=== PATIENT | female | born 1980 | race Caucasian/White ===

== ENCOUNTER 2019-07-09 11:22 | Observation (INO) | payer OTHER ==
--- NOTE | 2019-07-09 11:32 | ER Document Report ---
ED Medical Screen (RME) - General Chief Complaint: S/S of Possible Stroke Stated Complaint: POSSIBLE STROKE Time Seen by Provider: 07/09/19 11:25 Mode of Arrival: Ambulatory Information source: Patient Notes: 39-year-old female patient presented emergency department with chief complaint of confusion, tremor and difficulty putting thoughts together. Patient reports she noticed the symptoms upon waking this morning between 530 and 6 AM. She states she was fine when she went to bed last night. Denies any medical history. Denies any facial droop or unilateral weakness. Patient does have a tremor in her left upper extremity, she is having difficulty putting her thoughts together while answering questions in triage. She will be sent straight to obtain a head CT. I have greeted and performed a rapid initial assessment of this patient. A comprehensive ED assessment and evaluation of the patient, analysis of test results and completion of the medical decision making process will be conducted by additional ED providers. I have specifically instructed the patient or family members with the patient to immediately return to any nursing staff should anything change in the patient's condition or with their chief complaint. Physical Exam - Vital signs Vitals: Temp Pulse Resp BP Pulse Ox 98.2 F 92 16 117/70 98 07/09/19 11:27 07/09/19 11:27 07/09/19 11:27 07/09/19 11:27 07/09/19 11:27 Course - Vital Signs Vital signs: Temp Pulse Resp BP Pulse Ox 98.2 F 92 16 117/70 98 07/09/19 11:27 07/09/19 11:27 07/09/19 11:27 07/09/19 11:27 07/09/19 11:27
--- NOTE | 2019-07-09 11:56 | RADIOLOGY REPORT (SQ) ---
EXAM DESCRIPTION: CT HEAD WITHOUT COMPLETED DATE/TIME: 07/09/2019 10:39 am REASON FOR STUDY: confusion COMPARISON: None. TECHNIQUE: Axial images acquired through the brain without intravenous contrast. Images reviewed wi th bone, brain and subdural windows. Images stored on PACS. All CT scanners at this facility use dose modulation, iterative reconstruction, and/or weight based d osing when appropriate to reduce radiation dose to as low as reasonably achievable (ALARA). [facility]: Dose Right [facility]: CareDose [facility]: Dose Right [facility]: Teradose 4D [facility]: Smart Tykli RADIATION DOSE: CT Rad equipment meets quality standard of care and radiation dose reduction techniq ues were employed. CTDIvol: 53.2 mGy. DLP: 991 mGy-cm. mGy. LIMITATIONS: None. FINDINGS: VENTRICLES: Normal size and contour. CEREBRUM: No masses. No hemorrhage. No midline shift. No evidence for acute infarction. Normal gra y/white matter differentiation. No areas of low density in the white matter. CEREBELLUM: No masses. No hemorrhage. No alteration of density. No evidence for acute infarction. EXTRAAXIAL SPACES: No fluid collections. No masses. ORBITS AND GLOBE: No intra- or extraconal masses. Normal contour of globe without masses. CALVARIUM: No fracture. PARANASAL SINUSES: No fluid or mucosal thickening. SOFT TISSUES: No mass or hematoma. OTHER: No other significant finding. IMPRESSION: No acute intracranial hemorrhage, mass, or evidence of acute territorial infarct. EVIDENCE OF ACUTE STROKE: NO. COMMENT: Findings discussed with charge nurse on 07/09/2019 at 1150 hours. Quality ID # [id number]: Final reports with documentation of one or more dose reduction techniques (e.g., Au tomated exposure control, adjustment of the mA and/or kV according to patient size, use of iterative reconstruction technique) TECHNICAL DOCUMENTATION: JOB ID: [id number] [employer]- All Rights Reserved Reading location - IP/workstation name: [email or web address]
--- NOTE | 2019-07-09 12:10 | RADIOLOGY REPORT (SQ) ---
EXAM DESCRIPTION: CHEST SINGLE VIEW COMPLETED DATE/TIME: 07/09/2019 11:58 am REASON FOR STUDY: confusion COMPARISON: None. EXAM PARAMETERS: NUMBER OF VIEWS: One view. TECHNIQUE: Single frontal radiographic view of the chest acquired. RADIATION DOSE: NA LIMITATIONS: None. FINDINGS: LUNGS AND PLEURA: No opacities, masses or pneumothorax. No pleural effusion. MEDIASTINUM AND HILAR STRUCTURES: No masses. Contour normal. HEART AND VASCULAR STRUCTURES: Heart normal in size. Normal vasculature. BONES: No acute findings. HARDWARE: None in the chest. OTHER: No other significant finding. IMPRESSION: NO ACUTE RADIOGRAPHIC FINDING IN THE CHEST. TECHNICAL DOCUMENTATION: JOB ID: [id number] [employer]- All Rights Reserved Reading location - IP/workstation name: [email or web address]
[2019-07-09 12:14] LABS: ABSOLUTE EOSINOPHILS # (AUTO) 0.1 10^3/uL (0.0-0.6); ABSOLUTE LYMPHOCYTES (AUTO) 1.6 10^3/uL (0.5-4.7); ABSOLUTE MONOCYTES (AUTO) 0.4 10^3/uL (0.1-1.4); ABSOLUTE NEUT (AUTO) 4.3 10^3/uL (1.7-8.2); BASOPHILS % (AUTO) 0.5 % (0-2); HEMATOCRIT 39.5 % (36.0-47.0); HEMOGLOBIN 13.6 g/dL (12.0-15.5); INTERNATIONAL RATION (INR) 0.91; LYMPHOCYTES % (AUTO) 24.8 % (13-45); MEAN CORPUSCULAR HEMOGLOBIN 32.3 pg (27.0-33.4); MEAN CORPUSCULAR HGB CONC 34.4 g/dL (32.0-36.0); MEAN CORPUSCULAR VOLUME 94 fl (80-97); MONOCYTES % (AUTO) 6.8 % (3-13); PLATELET COUNT 281 10^3/uL (150-450); RED BLOOD COUNT 4.21 10^6/uL (3.72-5.28); RED CELL DISTRIBUTION WIDTH 12.8 % (11.5-14.0); SEGMENTED NEUTROPHILS % (AUTO) 66.9 % (42-78); TOTAL CELLS COUNTED % (AUTO) 100 %; WHITE BLOOD COUNT 6.4 10^3/uL (4.0-10.5)
[2019-07-09 12:15] LABS: PARTIAL THROMBOPLASTIN TIME 26.8 SEC (23.5-35.8)
[2019-07-09 12:22] LABS: PROTHROMBIN TIME 12.2 SEC (11.4-15.4)
[2019-07-09] MEDS ORDERED: ASPIRIN 325 MG TABLET PO ONE (12:28)
--- NOTE | 2019-07-09 12:35 | EKG REPORT ---
SEVERITY:- NORMAL ECG - SINUS RHYTHM : Confirmed by: Rashaad Dillon MD 09-Jul-2019 12:35:21
[2019-07-09 12:42] LABS: ALBUMIN 4.9 g/dL (3.5-5.0); ALKALINE PHOSPHATASE 71 U/L (38-126); ANION GAP 11 (5-19); ASPARTATE AMINO TRANSFERASE 34 U/L (14-36); BILIRUBIN,DIRECT 0.3 mg/dL (0.0-0.4); BILIRUBIN,TOTAL 0.6 mg/dL (0.2-1.3); BLOOD UREA NITROGEN 10 mg/dL (7-20); CALCIUM 10.3 mg/dL (8.4-10.2); CARBON DIOXIDE 29 mmol/L (22-30); CHLORIDE 101 mmol/L (98-107); CREATINE KINASE 132 U/L (30-135); GLUCOSE 99 mg/dL (75-110); POTASSIUM 4.4 mmol/L (3.6-5.0); TOTAL PROTEIN 8.2 g/dL (6.3-8.2)
[2019-07-09 12:54] LABS: CREATINE KINASE MB 0.66 ng/mL (<4.55)
[2019-07-09 12:59] LABS: TROPONIN I < 0.012 ng/mL
--- NOTE | 2019-07-09 13:24 | ER Document Report ---
ED General - General Chief Complaint: S/S of Possible Stroke Stated Complaint: POSSIBLE STROKE Time Seen by Provider: 07/09/19 11:25 Mode of Arrival: Ambulatory Notes: 31-year-old female who states that she woke up this morning feeling dizzy and confused, had blurry vision in both eyes right greater than left both of which are starting to improve. Patient also noticed that her work was not making sense when she tried to review case notes. States that when her woke up she noticed that her speech is very slow and difficult to talk. States she then started having tremors all over her body but they were mostly in her neck and her left arm. She has never had any similar symptoms before, does not have any headache with this. States that she has a history of migraines but this does not feel the same and she has never had a stroke mimic migraine. Patient does note that she has been having trouble with her typical activities of daily living today such as making coffee as she feels like her memory is not working well. Other associated symptoms whether having some epigastric abdominal pain last elissa margoth that was improved with aspirin. Last known well was 2245 or 2300 last evening. No family history of stroke at an early age however several maternal aunts have had strokes. Patient does not take any exogenous hormones. - Related Data Allergies/Adverse Reactions: latex Allergy (Verified 07/09/19 12:01) meperidine [From Demerol] Allergy (Verified 07/09/19 12:01) metronidazole [From Flagyl] Allergy (Verified 07/09/19 12:01) Home Medications: CBD at night for menopause Past Medical History - General Information source: Patient - Social History Smoking Status: Never Smoker Frequency of alcohol use: Daily glass of red wine. Drug Abuse: None Family History: CVA - Maternal aunts, unknown age. Patient has suicidal ideation: No Patient has homicidal ideation: No Review of Systems - Review of Systems Constitutional: See HPI, Weakness EENT: See HPI, Blurred vision Cardiovascular: See HPI, Dizziness Respiratory: No symptoms reported Gastrointestinal: See HPI, Abdominal pain - Last evening, has since resolved.. denies: Nausea, Vomiting Musculoskeletal: See HPI - Tremors. Neurological/Psychological: See HPI -: Yes All other systems reviewed and negative Physical Exam - Vital signs Vitals: Temp Pulse Resp BP Pulse Ox 98.2 F 92 16 117/70 98 07/09/19 11:27 07/09/19 11:27 07/09/19 11:27 07/09/19 11:27 07/09/19 11:27 Interpretation: Normal - Notes Notes: GENERAL: Alert, anxious. HEAD: Normocephalic, atraumatic EYES: Pupils equal, round and reactive to light, extraocular movements intact. ENT: Oral mucosa moist, tongue midline. NECK: Full range of motion, supple, trachea midline. LUNGS: Clear to auscultation bilaterally, no wheezes, rales or rhonchi, no respiratory distress. HEART: Regular rate and rhythm, no murmurs, gallops, rubs. ABDOMEN: Soft, nontender, nondistended, bowel sounds present in all 4 quadrants. EXTREMITIES: Moves all 4 extremities spontaneously, no edema, radial and dorsalis pedis pulses 2/4 bilaterally. No cyanosis. NEUROLOGICAL: Alert and oriented x3, speech is very slow and deliberate, somewhat delayed, very slight slurring, no aphasia, cranial nerves II through XII grossly intact, biceps and patellar DTRs 3+ bilaterally. Faint tremor lanre ateral upper extremities PSYCH: Anxious. SKIN: Warm, Dry, normal turgor, no rashes or lesions noted. Course - Re-evaluation Re-evalutation: 07/09/19 13:24 Patient is not a candidate for TPA given that her last known well was over [address] scan of the head is negative. Patient will be sent for MRI. NIH stroke scale is 1. CBC unremarkable, coags normal. CBC grossly unremarkable, troponin negative. Chest x-ray shows no acute process. 07/09/19 16:12 CBC unremarkable, coags normal, CMP unremarkable, test is negative, CT scan shows no acute process, chest x-ray unremarkable, MRI also shows no acute process. At present I do not know why she is having the symptoms. Discussed case with hospitalist for possible observation given persistent neurologic deficit of difficulty with speech which has not had any improvement. Dr. Dimas suggested that I obtain ammonia, ABG and drug screen and then discuss w betty cheung. 07/09/19 18:30 Discussed with DEBBY cheung, states he will come down and evaluate the patient as the venous blood gas and pneumonia are negative and the drug screen only reveals marijuana. 07/09/19 19:25 Sony cheung has agreed to place the patient in observation status on Dr. Tijerina's service in the [facility]. - Vital Signs Vital signs: Temp Pulse Resp BP Pulse Ox 98.2 F 60 17 106/73 99 07/09/19 11:27 07/09/19 15:00 07/09/19 17:00 07/09/19 15:00 07/09/19 17:00 - Laboratory Result Diagrams: 07/09/19 11:50 07/09/19 11:50 Laboratory results interpreted by me: 07/09/19 07/09/19 07/09/19 11:49 11:50 16:19 VBG pH 7.45 H VBG pCO2 34.2 L POC Glucose 115 H Calcium 10.3 H Ammonia 07/09/19 17:07 VBG pH VBG pCO2 POC Glucose Calcium Ammonia < 8.7 L - EKG Interpretation by Me Additional EKG results interpreted by me: 07/09/19 13:25 EKG shows sinus rhythm at a rate of 90, normal axis, normal intervals, no ST segment elevations or depressions, no T wave inversions per my interpretation. Discharge - Discharge Clinical Impression: Dysarthria Condition: Stable Disposition: ADMITTED OBSERVATION Admitting Provider: Breezy (Hospitalist) - Day Unit Admitted: [facility] ED NIH Stroke Scale - NIH Stroke Scale When completed:: Before Alteplase *: 1. NIH scale should be completed with appropriate accompanying assessment tools. *: 2. The NIH should reflect what the patient is capable of doing and should not be coached by the clinician. 1a. Level of Consciousness: 0=Alert;keenly responsive -: 1=Drowsy -: 2=Obtunded -: 3=Coma/unresponsive or reflex to noxious stimuli. 1a. Responses: 0 1b. Orientation Questions: a. What month is it? -: b. How old are you? -: 0=Answers both questions correctly. -: 1=Answers one question correctly or patient is intubated or has orotracheal trauma. -: 2=Answers neither question correctly. 1b. Responses: 0 1c. Response to commands: a. Open and close eyes? -: b. Sleep Tech and release hand? -: Credit is given despite weakness. Demonstration of task is permitted. Substitute command if hands cannot be used. -: 0=Performs both tasks correctly -: 1=Performs one task correctly -: 2=Performs neither task correctly 1c. Responses: 0 2. Gaze: Establish eye contact and instruct patient to "Follow my finger" -: 0=Normal -: 1=Partial gaze palsy. Gaze is abnormal in one or both eyes, but where forced deviation or total gaze paresis is not present. -: 2=Forced deviation or total gaze paresis. 2. Responses: 0 3. Visual Gomez: Sees fingers in all four quadrants. -: 0=No visual loss. -: 1=Partial hemianopsia. -: 2=Complete hemianopsia. -: 3=Bilateral hemianopsia (including Cortical blindness) 3. Responses: 0 4. Facial Movement: Instruct patient to: -: a. Show me your teeth -: b. Raise your eyebrows -: c. Close your eyes -: d. Smile -: 0=Normal symmetrical movement -: 1=Minor paralysis (flattened nasolabial fold, asymmetry on smiling). -: 2=Partial paralysis (total or near total paralysis of lower face). -: 3=Complete paralysis of upper and lower face 4. Responses: 0 5. Motor functions (left arm): Alternate sides and extend each arm with palms down (90 degrees if sitting or 45 degrees for supine). -: 0=No drift;limb holds for full 10 seconds. -: 1=Drift; limb holds but drifts down before full 10 seconds, but does not hit bed. -: 2=Some effort against gravity; limb cannot get to or maintain position. -: 3=No effort against gravity; limb falls. -: 4=No movement. -: UN=Amputation, joint fusion, explain in comments. 5. Responses (left arm): 0 5. Motor Functions (right arm): Alternate sides and extend each arm with palms down (90 degrees if sitting or 45 degrees for supine). -: 0=No drift;limb holds for full 10 seconds. -: 1=Drift; limb holds but drifts down before full 10 seconds, but does not hit bed. -: 2=Some effort against gravity; limb cannot get to or maintain position. -: 3=No effort against gravity; limb falls. -: 4=No movement. -: UN=Amputation, joint fusion, explain in comments. 5. Responses (right arm): 0 6. Motor Functions (left leg): With patient lying supine, alternate sides and extend each leg (30 degrees always while supine). -: 0=No drift, leg holds position for full 5 seconds -: 1=Drift; leg falls before full 5 seconds but does not hit bed. -: 2=Some effort against gravity, leg falls to bed but some effort against gravity. -: 3=No effort against gravity, leg falls to bed immediately. -: 4=No movement. -: UN=Amputation, joint fusion; explain in comments. 6. Responses (left leg): 0 6. Motor Functions (right leg): With patient lying supine, alternate sides and extend each leg (30 degrees always while supine). -: 0=No drift, leg holds position for full 5 seconds -: 1=Drift; leg falls before full 5 seconds but does not hit bed. -: 2=Some effort against gravity, leg falls to bed but some effort against gravity. -: 3=No effort against gravity, leg falls to bed immediately. -: 4=No movement. -: UN=Amputation, joint fusion; explain in comments. 6. Responses (right leg): 0 7. Limb Ataxia: With eyes open instruct patient to: -: a. "Touch your finger to your nose". -: b. "Touch your heel to your rich" -: 0=Absent -: 1=Present in one limb. -: 2=Present in two limbs. -: UN=Amputation or joint fusion; explain in comments. 7. Responses: 0 8. Sensory: Test sensation using pinprick or noxious stimuli. Test as many body parts as possible. -: 0=Normal;no sensory loss -: 1=Mile to moderate sensory loss (patient feels pin prick but is less sharp on affected side). -: 2=Severe or total sensory loss. 8. Responses: 0 9. Best Language: Instruct patient to: -: a. "Describe what you see in this picture." -: b. "Name the items in this picture." -: c. "Read these sentences." -: 0=No aphasia, normal -: 1=Mild to moderate aphasia. -: 2=Severe aphasia -: 3=Mute, global aphasia, no usable speech or auditory comprehension. 9. Responses: 0 10. Articulation, Dysarthia: Instruct patient to: -: "Read these words" or "Repeat these words" -: 0=Normal -: 1=Mild to moderate; patient may slur some words but can be understood without difficulty. -: 2=Severe; patients speech so slurred as to be unintelligible in the absence of dysphasia. -: UN=Intubated or other physical barrier, explain in comments. 10. Responses: 1 11. Extinction or inattention: 0=No abnormality -: 1= Visual, tactile, auditory, spatial, or personal inattention or extinction to bilateral simulation in one or the sensory modalities. -: 2=Profound tamiko-inattention or tamiko-inattention to more than one modality; does not recognize own hand. 11. Responses: 0 Total Score: 1
--- NOTE | 2019-07-09 13:59 | RADIOLOGY REPORT (SQ) ---
EXAM DESCRIPTION: MRI HEAD WITHOUT COMPLETED DATE/TIME: 07/09/2019 1:47 pm REASON FOR STUDY: dysarthria, dizziness, r/o stroke COMPARISON: CT dated 07/09/2019. TECHNIQUE: Multiplanar imaging includes non-contrasted T1, T2, FLAIR, and diffusion with ADC map seq uences. Images stored on PACS. LIMITATIONS: None. FINDINGS: ANATOMY: No anomalies. Normal vascular flow voids. Pituitary fossa normal. CSF SPACES: Normal in size and contour. No hemorrhage. CEREBRUM: Sulci and gyri normal in size and contour. Normal white matter signal on FLAIR imaging. No evidence of hemorrhage, mass, or extraaxial fluid collection. POSTERIOR FOSSA: No signal alteration. No hemorrhage. No edema, masses or mass effect. Internal jessica tory canals, cerebello-pontine angles, mastoids normal. DIFFUSION IMAGING: Negative for acute or sub-acute infarction. ORBITS: No masses. Globes normal. PARANASAL SINUSES: No fluid levels. Mucosa normal. OTHER: No other significant finding. IMPRESSION: NORMAL MRI OF THE BRAIN WITHOUT INTRAVENOUS GADOLINIUM CONTRAST. EVIDENCE OF ACUTE STROKE: NO. TECHNICAL DOCUMENTATION: JOB ID: [id number] [employer]- All Rights Reserved Reading location - IP/workstation name: [email or web address]
[2019-07-09] MEDS ORDERED: CALCIUM CARBONATE 500 MG TAB.CHEW PO ONE (14:25)
[2019-07-09 16:39] LABS: VENOUS BLOOD BASE EXCESS -0.3 mmol/L; VENOUS BLOOD HCO3 23.2 mmol/L (20-32); VENOUS BLOOD PCO2 34.2 mmHg (35-63); VENOUS BLOOD PH 7.45 (7.30-7.42)
[2019-07-09 16:48] LABS: URINE AMPHETAMINES SCREEN NEGATIVE; URINE BARBITURATES SCREEN NEGATIVE; URINE BENZODIAZEPINES SCREEN NEGATIVE; URINE COCAINE SCREEN NEGATIVE; URINE METHADONE SCREEN NEGATIVE; URINE PHENCYCLIDINE SCREEN NEGATIVE
[2019-07-09 16:49] LABS: URINE MARIJUANA (THC) SCREEN UNCONFIRMED POSITIVE
[2019-07-09] MEDS ORDERED: ACETAMINOPHEN 325 MG TABLET PO PRN (19:19)
[2019-07-09] MEDS ORDERED: ONDANSETRON 4 MG TAB.RAPDIS PO PRN (19:19)
[2019-07-09] MEDS ORDERED: ONDANSETRON HCL INJ/PF 4 MG/2 ML SDV IV PRN (19:19)
[2019-07-09 22:33] LABS: FREE T3 2.88 pg/mL (2.77-5.27)
[2019-07-09 22:47] LABS: THYROID STIMULATING HORMONE 0.98 uIU/mL (0.47-4.68)
[2019-07-09] MEDS: FAMOTIDINE 20 MG TABLET PO SCH (22:57)
[2019-07-10 05:47] LABS: ABSOLUTE EOSINOPHILS # (AUTO) 0.1 10^3/uL (0.0-0.6); ABSOLUTE LYMPHOCYTES (AUTO) 1.8 10^3/uL (0.5-4.7); ABSOLUTE MONOCYTES (AUTO) 0.5 10^3/uL (0.1-1.4); ABSOLUTE NEUT (AUTO) 3.3 10^3/uL (1.7-8.2); BASOPHILS % (AUTO) 0.6 % (0-2); EOSINOPHILS % (AUTO) 2.3 % (0-6); HEMATOCRIT 35.7 % (36.0-47.0); HEMOGLOBIN 12.5 g/dL (12.0-15.5); LYMPHOCYTES % (AUTO) 31.2 % (13-45); MEAN CORPUSCULAR HEMOGLOBIN 32.7 pg (27.0-33.4); MEAN CORPUSCULAR VOLUME 93 fl (80-97); MONOCYTES % (AUTO) 8.5 % (3-13); PLATELET COUNT 240 10^3/uL (150-450); RED BLOOD COUNT 3.82 10^6/uL (3.72-5.28); RED CELL DISTRIBUTION WIDTH 12.6 % (11.5-14.0); SEGMENTED NEUTROPHILS % (AUTO) 57.4 % (42-78); TOTAL CELLS COUNTED % (AUTO) 100 %; WHITE BLOOD COUNT 5.7 10^3/uL (4.0-10.5)
[2019-07-10 06:09] LABS: ANION GAP 10 (5-19); BLOOD UREA NITROGEN 11 mg/dL (7-20); CALCIUM 9.7 mg/dL (8.4-10.2); CARBON DIOXIDE 25 mmol/L (22-30); CHLORIDE 103 mmol/L (98-107); GLUCOSE 88 mg/dL (75-110); PHOSPHORUS 4.6 mg/dL (2.5-4.5); POTASSIUM 4.4 mmol/L (3.6-5.0)
--- NOTE | 2019-07-10 07:01 | PDOC H&P ---
History of Present Illness Admission Date/PCP: 07/09/19 19:28 History of Present Illness: STEPHANIE CERVANTES is a 39 year old female who presents to the emergency room with neurologic symptoms. She states she awoke on the morning of admission with vague augmentative problems she said she felt a little confused a little disoriented but nothing specific she said she then went to make coffee and she knew what she wanted to do but she just felt like she was incapable of doing that. He then went to take the dog outside and when trying to speak to the dog she noticed that her speech pattern was garbled and had difficulty speaking. Also stated that she had some sort of visual defect involving the right eye was in a blindness but it was more of a blurred vision, however this is gone away and went away that morning.. Her got up later that morning he noticed immediately that she had difficulty speaking and that her speech pattern was broken. Patient states she felt lightheaded as well but really did not notice anything focally, unilaterally.. Did notice a fine motor tremor of her head and upper body primarily. Presented to the emergency room sometime later today and I was called at approximately 1825 hrs. to evaluate the patient.. Patient denies using any illegal drugs though she says for the last 5 months she has been doing CBD oil for her fibromyalgia. Patient emphatically denies smoking marijuana she denies taking cocaine or heroin patient also denies any alcohol abuse or tobacco abuse.. She states her only chronic illnesses fibromyalgia which she has been diagnosed with for years. Patient states that when she was a teenager and young adult she did have depression and was treated for depression but nothing recently... Patient has a fianc in the room as well as an older teenage daughter. Patient has a stable job for the last 4 years. Patient has no previous history of [place] or stroke.. . . Patient is rightly concerned about her speech pattern and tremors and what could be causing this. I have told patient that we do not have neurology here and she could be transferred tonight to [facility] where neurology is available or we could attempt a basic workup and I could call neurology tomorrow and discuss with them. She does not appear to be in any imminent emergency situation. Workup so far shows normal brain MRI. I am considering some toxic exposure. A seizure activity that resulted in specific ischemia to brainstem. Or microvascular type infarct. Patient did state this morning when she was eating breakfast the food tasted llike "thaddeus coal. " Patient and sophie have agreed to be admitted here for initial workup. Past Medical History Cardiac Medical History: Reports: None Pulmonary Medical History: Reports: None Musculoskeltal Medical History: Reports: Fibromyalgia Psychiatric Medical History: Reports: Depression Social History Smoking Status: Former Smoker Last Time Smoked: 2015 Frequency of Alcohol Use: Rare Hx Recreational Drug Use: No Hx Prescription Drug Abuse: No - Advance Directive Resuscitation Status: Full Code Family History Family History: CVA - Maternal aunts, unknown age. Parental Family History Reviewed: No Children Family History Reviewed: No Sibling(s) Family History Reviewed.: No Medication/Allergy Home Medications: No Home Medications 07/09/19 Allergies/Adverse Reactions: latex Allergy (Verified 07/09/19 12:01) meperidine [From Demerol] Allergy (Verified 07/09/19 12:01) metronidazole [From Flagyl] Allergy (Verified 07/09/19 12:01) Review of Systems Constitutional: ABSENT: chills, fever(s), headache(s), weight gain, weight loss Cardiovascular: ABSENT: chest pain, dyspnea on exertion, edema, orthropnea, palpitations Respiratory: ABSENT: cough, hemoptysis Neurological: PRESENT: abnormal movements, abnormal speech, lack of coordination, tremor(s) Psychiatric: ABSENT: anxiety, depression, homidical ideation, suicidal ideation Physical Exam Vital Signs: Temp Pulse Resp BP Pulse Ox 98.0 F 74 18 101/54 L 99 07/10/19 04:04 07/10/19 04:07 07/10/19 04:07 07/10/19 04:07 07/10/19 04:07 Intake & Output 07/08/19 07/09/19 07/10/19 06:59 06:59 06:59 Weight 60.3 kg General appearance: PRESENT: no acute distress, other - broken staccato speech pattern. Fine upper body motor tremor Head exam: PRESENT: normocephalic Eye exam: PRESENT: conjunctiva pink, EOMI, PERRLA. ABSENT: scleral icterus Neck exam: ABSENT: carotid bruit, JVD, lymphadenopathy, thyromegaly Respiratory exam: PRESENT: clear to auscultation lanre. ABSENT: rales, rhonchi, wheezes Cardiovascular exam: PRESENT: RRR. ABSENT: diastolic murmur, rubs, systolic murmur Neurological exam: PRESENT: alert, awake, oriented to person, oriented to place, oriented to time, oriented to situation, ataxia, other - staccato speech. p ositive drift and barre. positive rapid alternating movements. motor strength strong and equal. No assymetry Psychiatric exam: PRESENT: anxious - normal for this situation Results Laboratory Results: 07/10/19 04:55 07/10/19 04:55 07/09/19 07/09/19 07/09/19 11:50 11:50 11:50 WBC 6.4 RBC 4.21 Hgb 13.6 Hct 39.5 MCV 94 MCH 32.3 MCHC 34.4 RDW 12.8 Plt Count 281 Seg Neutrophils % 66.9 VBG pH VBG pCO2 VBG HCO3 VBG Base Excess Carboxyhemoglobin Sodium 141.1 Potassium 4.4 Chloride 101 Carbon Dioxide 29 Anion Gap 11 BUN 10 Creatinine 0.97 Est GFR ( Amer) > 60 Glucose 99 Calcium 10.3 H Phosphorus Magnesium Total Bilirubin 0.6 AST 34 Alkaline Phosphatase 71 Ammonia C-Reactive Protein Total Protein 8.2 Albumin 4.9 TSH Free T4 Free T3 pg/mL Serum HCG, Qual NEGATIVE 07/09/19 07/09/19 07/09/19 11:50 16:19 17:07 WBC RBC Hgb Hct MCV MCH MCHC RDW Plt Count Seg Neutrophils % VBG pH 7.45 H VBG pCO2 34.2 L VBG HCO3 23.2 VBG Base Excess -0.3 Carboxyhemoglobin Sodium Potassium Chloride Carbon Dioxide Anion Gap BUN Creatinine Est GFR ( Amer) Glucose Calcium Phosphorus Magnesium Total Bilirubin AST Alkaline Phosphatase Ammonia < 8.7 L C-Reactive Protein < 5.0 Total Protein Albumin TSH Free T4 Free T3 pg/mL Serum HCG, Qual 07/09/19 07/09/19 07/10/19 21:25 21:25 04:55 WBC 5.7 RBC 3.82 Hgb 12.5 Hct 35.7 L MCV 93 MCH 32.7 MCHC 35.0 RDW 12.6 Plt Count 240 Seg Neutrophils % 57.4 VBG pH VBG pCO2 VBG HCO3 VBG Base Excess Carboxyhemoglobin 1.0 Sodium Potassium Chloride Carbon Dioxide Anion Gap BUN Creatinine Est GFR ( Amer) Glucose Calcium Phosphorus Magnesium Total Bilirubin AST Alkaline Phosphatase Ammonia C-Reactive Protein Total Protein Albumin TSH 0.98 Free T4 1.00 Free T3 pg/mL 2.88 Serum HCG, Qual 07/10/19 04:55 WBC RBC Hgb Hct MCV MCH MCHC RDW Plt Count Seg Neutrophils % VBG pH VBG pCO2 VBG HCO3 VBG Base Excess Carboxyhemoglobin Sodium 138.3 Potassium 4.4 Chloride 103 Carbon Dioxide 25 Anion Gap 10 BUN 11 Creatinine 0.87 Est GFR ( Amer) > 60 Glucose 88 Calcium 9.7 Phosphorus 4.6 H Magnesium 2.2 Total Bilirubin AST Alkaline Phosphatase Ammonia C-Reactive Protein Total Protein Albumin TSH Free T4 Free T3 pg/mL Serum HCG, Qual 07/09/19 07/09/19 11:50 11:50 Creatine Kinase 132 CK-MB (CK-2) 0.66 Troponin I < 0.012 Impressions: Chest X-Ray 07/09/19 11:29 IMPRESSION: NO ACUTE RADIOGRAPHIC FINDING IN THE CHEST. Head CT 07/09/19 11:29 IMPRESSION: No acute intracranial hemorrhage, mass, or evidence of acute territorial infarct. EVIDENCE OF ACUTE STROKE: NO. Head MRI 07/09/19 12:28 IMPRESSION: NORMAL MRI OF THE BRAIN WITHOUT INTRAVENOUS GADOLINIUM CONTRAST. EVIDENCE OF ACUTE STROKE: NO. Assessment and Plan - Diagnosis (1) Tremors of nervous system Is this a current diagnosis for this admission?: Yes (2) Fibromyalgia Is this a current diagnosis for this admission?: Yes (3) Dysarthria Is this a current diagnosis for this admission?: Yes - Plan Summary Summary: Patient will be admitted for basic neurology workup. Consult neuro tomorrow with workup results. - Time Time Spent with patient: 35 or more minutes
[2019-07-10] MEDS: FAMOTIDINE 20 MG TABLET PO SCH (09:57)
[2019-07-10] MEDS ORDERED: ENOXAPARIN SODIUM INJ 40 MG/0.4 ML DISP.SYRIN SUBCUT SCH (10:00)
--- NOTE | 2019-07-10 14:37 | RADIOLOGY REPORT (SQ) ---
EXAM DESCRIPTION: MRA HEAD WITHOUT COMPLETED DATE/TIME: 07/10/2019 2:20 pm REASON FOR STUDY: cva COMPARISON: MRI of the brain 07/09/2019 TECHNIQUE: Axial 3-D [id number] acquisition imaging performed through the brain in the area of t he [place] of [place]. Images reformatted using 3-D MIPS. LIMITATIONS: None. FINDINGS: SOURCE IMAGES: No unexpected findings on source images. No large masses. 3-D MIP: No aneurysm. No occlusions. No significant stenosis. OTHER: No other significant finding. IMPRESSION: NORMAL MRA OF THE [place] OF [place]. TECHNICAL DOCUMENTATION: JOB ID: [id number] [employer]- All Rights Reserved Reading location - IP/workstation name: [email or web address]
--- NOTE | 2019-07-10 14:44 | RADIOLOGY REPORT (SQ) ---
EXAM DESCRIPTION: MRA NECK COMBO COMPLETED DATE/TIME: 07/10/2019 2:20 pm REASON FOR STUDY: cva COMPARISON: None. TECHNIQUE: MRA of the carotid and vertebral arteries was performed using 2D and 3D [id number] te chniques without and with the use of gadolinium. 3-D MIPs performed at the workstation and stored on PACS. CONTRAST TYPE AND DOSE: 20 mL Dotarem. RENAL FUNCTION: Not indicated. ACR Type II contrast agent associated with few, if any, unconfounded cases of NSF LIMITATIONS: None. FINDINGS: GREAT VESSEL ORIGINS: Normal. No stenoses. VERTEBRAL ARTERIES: No stenoses. No evidence for aneurysm or dissection. RIGHT CAROTID SYSTEM: No significant stenosis. LEFT CAROTID SYSTEM: No significant stenosis. OTHER: There is some tortuosity of the ICAs, left more than right. IMPRESSION: There is no significant carotid or vertebral stenosis. There is no dissection. ICA tor tuosity is present. COMMENT: Quality ID #[id number]: Measurements of distal internal carotid diameter were used as the denomina tor for stenosis measurement. TECHNICAL DOCUMENTATION: JOB ID: [id number] [employer]- All Rights Reserved Reading location - IP/workstation name: [email or web address]
[2019-07-10 16:36] VITALS: BP 105/62
--- NOTE | 2019-07-10 16:48 | PDOC DISCHARGE SUMMARY ---
Impression - Admit/DC Date/PCP Admission Date/Primary Care Provider: 07/09/19 19:28 Discharge Date: 07/10/19 - Discharge Diagnosis (1) Tremors of nervous system Is this a current diagnosis for this admission?: Yes (2) Fibromyalgia Is this a current diagnosis for this admission?: Yes (3) Dysarthria Is this a current diagnosis for this admission?: Yes - Assessment Summary: Patient will be admitted for basic neurology workup. Consult neuro tomorrow with workup results. MRA of the brain MRA of the neck were both reported normal. MRI of the brain was reported as normal as well. CT head scan in the emergency room was also negative or normal Sed rate of 16 white count 5700 H&H 12.5 /35.7 Coags normal Chemistry panel sodium 138 potassium 4.4 BUN of 11 creatinine 0.87 glucose of 88 calcium 9.7 phosphorus slightly elevated 4.6 magnesium normal 2.2. Jemima level less than 8.7 troponins normal C-reactive protein less than 5 TSH 0.98 Urine negative Psychology unconfirmed positive for THC secondary to CBD oil Chest x-ray is normal On neurology at [facility] and discussed the case with , felt the patient could be discharged home safely and follow-up in the [facility] neurology outpatient clinic. Patient is to take 1 enteric-coated aspirin baby 81 mg daily. She has a stay out of work for the next 6 weeks.. I had a long talk with the patient her fianc and daughter in the room. We discussed all her test results. She seems satisfied with the work-up and was told to go to either [place] or [facility] if she should have further problems or her problems worsen where she can be seen by neurology - Additional Information Resuscitation Status: Full Code Discharge Diet: As Tolerated Discharge Activity: Balance Activity w/Rest Referrals: JOSS MADDEN MD [ACTIVE STAFF] - (New Patient.) Home Medications: Acetaminophen [Tylenol 325 mg Tablet] 650 mg PO Q4HP PRN tablet 07/10/19 History of Present Illiness History of Present Illness: STEPHANIE CERVANTES is a 39 year old female who presents to the emergency room with neurologic symptoms. She states she awoke on the morning of admission with vague augmentative problems she said she felt a little confused a little disoriented but nothing specific she said she then went to make coffee and she knew what she wanted to do but she just felt like she was incapable of doing that. He then went to take the dog outside and when trying to speak to the dog she noticed that her speech pattern was garbled and had difficulty speaking. Also stated that she had some sort of visual defect involving the right eye was in a blindness but it was more of a blurred vision, however this is gone away and went away that morning.. Her got up later that morning he noticed immediately that she had difficulty speaking and that her speech pattern was broken. Patient states she felt lightheaded as well but really did not notice anything focally, unilaterally.. Did notice a fine motor tremor of her head and upper body primarily. Presented to the emergency room sometime later today and I was called at approximately 1825 hrs. to evaluate the patient.. Patient denies using any illegal drugs though she says for the last 5 months she has been doing CBD oil for her fibromyalgia. Patient emphatically denies smoking marijuana she denies taking cocaine or heroin patient also denies any alcohol abuse or tobacco abuse.. She states her only chronic illnesses fibromyalgia which she has been diagnosed with for years. Patient states that when she was a teenager and young adult she did have depression and was treated for depression but nothing recently... Patient has a fianc in the room as well as an older teenage daughter. Patient has a stable job for the last 4 years. Patient has no previous history of [place] or stroke.. . . Patient is rightly concerned about her speech pattern and tremors and what could be causing this. I have told patient that we do not have neurology here and [facility] where neurolog[facility] available or we could attempt a basic workup and I could call neurology tomorrow and discuss with them. She does not appear to be in any imminent emergency situation. Workup so far shows normal brain MRI. I am considering some toxic exposure. A seizure activity that resulted in specific ischemia to brainstem. Or microvascular type infarct. Patient did state this morning when she was eating breakfast the food tasted llike "charcoal. " Patient and sophie have agreed to be admitted here for initial workup. Physical Exam Vital Signs: Temp Pulse Resp BP Pulse Ox 98.0 F 97 16 105/62 98 07/10/19 16:35 07/10/19 16:35 07/10/19 16:35 07/10/19 16:35 07/10/19 16:35 Intake & Output 07/09/19 07/10/19 07/11/19 06:59 06:59 06:59 Intake Total 786 Balance 786 Weight 60.5 kg Results Laboratory Results: WBC 5.7 10^3/uL (4.0-10.5) 07/10/19 04:55 RBC 3.82 10^6/uL (3.72-5.28) 07/10/19 04:55 Hgb 12.5 g/dL (12.0-15.5) 07/10/19 04:55 Hct 35.7 % (36.0-47.0) L 07/10/19 04:55 MCV 93 fl (80-97) 07/10/19 04:55 MCH 32.7 pg (27.0-33.4) 07/10/19 04:55 MCHC 35.0 g/dL (32.0-36.0) 07/10/19 04:55 RDW 12.6 % (11.5-14.0) 07/10/19 04:55 Plt Count 240 10^3/uL (150-450) 07/10/19 04:55 Lymph % (Auto) 31.2 % (13-45) 07/10/19 04:55 [place] % (Auto) 8.5 % (3-13) 07/10/19 04:55 Eos % (Auto) 2.3 % (0-6) 07/10/19 04:55 Baso % (Auto) 0.6 % (0-2) 07/10/19 04:55 Absolute Neuts (auto) 3.3 10^3/uL (1.7-8.2) 07/10/19 04:55 Absolute Lymphs (auto) 1.8 10^3/uL (0.5-4.7) 07/10/19 04:55 Absolute Monos (auto) 0.5 10^3/uL (0.1-1.4) 07/10/19 04:55 Absolute Eos (auto) 0.1 10^3/uL (0.0-0.6) 07/10/19 04:55 Absolute Basos (auto) 0.0 10^3/uL (0.0-0.2) 07/10/19 04:55 Seg Neutrophils % 57.4 % (42-78) 07/10/19 04:55 ESR 16 mm/hr (0-20) 07/09/19 21:25 PT 12.2 SEC (11.4-15.4) 07/09/19 11:50 INR 0.91 07/09/19 11:50 APTT 26.8 SEC (23.5-35.8) 07/09/19 11:50 VBG pH 7.45 (7.30-7.42) H 07/09/19 16:19 VBG pCO2 34.2 mmHg (35-63) L 07/09/19 16:19 VBG HCO3 23.2 mmol/L (20-32) 07/09/19 16:19 VBG Base Excess -0.3 mmol/L 07/09/19 16:19 Carboxyhemoglobin 1.0 % (0.5-1.5) 07/09/19 21:25 Sodium 138.3 mmol/L (137-145) 07/10/19 04:55 Potassium 4.4 mmol/L (3.6-5.0) 07/10/19 04:55 Chloride 103 mmol/L (98-107) 07/10/19 04:55 Carbon Dioxide 25 mmol/L (22-30) 07/10/19 04:55 Anion Gap 10 (5-19) 07/10/19 04:55 BUN 11 mg/dL (7-20) 07/10/19 04:55 Creatinine 0.87 mg/dL (0.52-1.25) 07/10/19 04:55 Est GFR ( Amer) > 60 (>60) 07/10/19 04:55 Est GFR (MDRD) Non-Af > 60 (>60) 07/10/19 04:55 Glucose 88 mg/dL (75-110) 07/10/19 04:55 POC Glucose 115 mg/dL (70-110) H 07/09/19 11:49 Calcium 9.7 mg/dL (8.4-10.2) 07/10/19 04:55 Phosphorus 4.6 mg/dL (2.5-4.5) H 07/10/19 04:55 Magnesium 2.2 mg/dL (1.6-2.3) 07/10/19 04:55 Total Bilirubin 0.6 mg/dL (0.2-1.3) 07/09/19 11:50 Direct Bilirubin 0.3 mg/dL (0.0-0.4) 07/09/19 11:50 Neonat Total Bilirubin Not Reportable 07/09/19 11:50 Neonat Direct Bilirubin Not Reportable 07/09/19 11:50 Neonat Indirect Bili Not Reportable 07/09/19 11:50 AST 34 U/L (14-36) 07/09/19 11:50 ALT 19 U/L (<35) 07/09/19 11:50 Alkaline Phosphatase 71 U/L (38-126) 07/09/19 11:50 Ammonia < 8.7 umol/L (9-33) L 07/09/19 17:07 Creatine Kinase 132 U/L (30-135) 07/09/19 11:50 CK-MB (CK-2) 0.66 ng/mL (<4.55) 07/09/19 11:50 Troponin I < 0.012 ng/mL 07/09/19 11:50 C-Reactive Protein < 5.0 mg/L (<10.0) 07/09/19 11:50 Total Protein 8.2 g/dL (6.3-8.2) 07/09/19 11:50 Albumin 4.9 g/dL (3.5-5.0) 07/09/19 11:50 TSH 0.98 uIU/mL (0.47-4.68) 07/09/19 21:25 Free T4 1.00 ng/dL (0.78-2.19) 07/09/19 21:25 Free T3 pg/mL 2.88 pg/mL (2.77-5.27) 07/09/19 21:25 Serum HCG, Qual NEGATIVE (NEGATIVE) 07/09/19 11:50 Urine Opiates Screen NEGATIVE 07/09/19 11:50 Urine Methadone Screen NEGATIVE 07/09/19 11:50 Ur Barbiturates Screen NEGATIVE 07/09/19 11:50 Ur Phencyclidine Scrn NEGATIVE 07/09/19 11:50 Ur Amphetamines Screen NEGATIVE 07/09/19 11:50 U Benzodiazepines Scrn NEGATIVE 07/09/19 11:50 Urine Cocaine Screen NEGATIVE 07/09/19 11:50 U Marijuana (THC) Screen UNCONFIRMED POSITIVE 07/09/19 11:50 07/09/19 11:50 CK-MB (CK-2) 0.66 Troponin I < 0.012 Impressions: Chest X-Ray 07/09/19 11:29 IMPRESSION: NO ACUTE RADIOGRAPHIC FINDING IN THE CHEST. Head CT 07/09/19 11:29 IMPRESSION: No acute intracranial hemorrhage, mass, or evidence of acute territorial infarct. EVIDENCE OF ACUTE STROKE: NO. Head MRI 07/09/19 12:28 IMPRESSION: NORMAL MRI OF THE BRAIN WITHOUT INTRAVENOUS GADOLINIUM CONTRAST. EVIDENCE OF ACUTE STROKE: NO. Brain MRI with MRA 07/10/19 00:00 IMPRESSION: NORMAL MRA OF THE [place] OF [place]. Neck MRA 07/10/19 00:00 IMPRESSION: There is no significant carotid or vertebral stenosis. There is no dissection. ICA tortuosity is present. Stroke Is this a Stroke Patient?: No Acute Heart Failure - Is this a Heart Failure Patient?: No
== END 2019-07-10 17:36 | disposition home or self-care (01) ==
LOC: ER 11:22 → EH 19:28 → 3W 20:54
PROVIDERS: ADMIT Hospitalist; ATTEND Hospitalist
DX: G25.2 Other specified forms of tremor (principal); M79.7 Fibromyalgia; R47.1 Dysarthria and anarthria; R41.0 Disorientation, unspecified; H53.8 Other visual disturbances; R42 Dizziness and giddiness; R53.1 Weakness; R43.8 Other disturbances of smell and taste; R29.701 NIHSS score 1; Z32.02 Encounter for pregnancy test, result negative; Z87.891 Personal history of nicotine dependence; Z82.3 Family history of stroke; Z86.69 Personal history of other diseases of the nervous system and sense organs
CPT/HCPCS: 93005; 99285; 36415 ×2; 84439; 82375; 82553; 82962; 82140; 82550; 83735; 84100; 84443; 84703; 85025 ×2; 85652; 85610; 85730; 86140; 80048; 80053; 84484; 80307; 84481; 82803; 70551; 70544; 70549; 71045; 70450; 93010; G0378 ×3; A9576